=== PATIENT | female | born 1985 | race Caucasian/White ===

== ENCOUNTER 2016-07-17 09:16 | Emergency (ER) | payer SELFPAY ==
[~2016-07-17] VITALS: Ht 170.2 cm; Wt 63.8 kg
[2016-07-17 09:18] VITALS: Ht 170.2 cm; Wt 63.8 kg
--- OUTSIDE RECORDS SUMMARY | 2016-07-17 09:20 | XMS REPORT ---
Author Author GENERATED, SYSTEM Organization Unknown Address Unknown Phone Unavailable Care Team Providers Care Assistant Operations Manager Name Role Phone MD DIEGO, [facility] [phone] Reason For Visit Chief Complaint PHARYNGITIS Social History Functional Status Vital Signs Results Problems Encounter Diagnosis No relevant problems exist. Encounters Encounter Diagnosis No relevant problems exist. Plan of Care Procedures No relevant procedures performed. Immunizations No immunizations administered or ordered. Hospital Course Hospital Discharge Instructions Allergies, Adverse Reactions, Alerts * Latex Allergy has not been assessed. * IV Contrast Allergy has not been assessed. Medication Medication reconciliation has not been performed.
--- OUTSIDE RECORDS SUMMARY | 2016-07-17 09:20 | XMS REPORT ---
Author Author GENERATED, SYSTEM Organization Unknown Address Unknown Phone Unavailable Care Team Providers Care Local Company Intermodal Truck Driver Name Role Phone MD DIEGO, PAO PP [phone] Reason For Visit Chief Complaint PID Social History Functional Status Vital Signs Results Chemistry from 01/14/2016 12:36 PMSODIUM 141 MMOL/L (136-145 MMOL/L) POTASSIUM 3.9 MMOL/L (3.5-5.1 MMOL/L) CHLORIDE 106 MMOL/L (98-107 MMOL/L) TCO2 24.8 MMOL/L (21.0-32.0 MMOL/L) *ANION GAP 10.2 MMOL/L (8.0-16.0 MMOL/L) BUN 14 MG/DL (7-18 MG/DL) CREATININE 0.97 MG/DL (0.55-1.02 MG/DL) *BUN/CREATININE RATIO 14.4 (9.1-17.0 ) GLUCOSE 100 MG/DL H (65-99 MG/DL) *GFR EST NON AFR [place] 79 ML/MIN *GFR EST AFR AMER >90 ML/MIN CALCIUM 9.3 MG/DL (8.5-10.1 MG/DL) BILIRUBIN TOTAL 0.60 MG/DL (0.20-1.00 MG/DL) TOTAL PROTEIN 8.0 GM/DL (6.4-8.2 GM/DL) ALBUMIN 4.5 GM/DL (3.4-5.0 GM/DL) *GLOBULIN 3.5 GM/DL (2.3-3.5 GM/DL) *A/G RATIO 1.3 MG/DL L (1.5-2.2 MG/DL) ALK PHOS 54 U/L (46-116 U/L) ALT (SGPT) 13 U/L L (16-63 U/L) AST (SGOT) 12 U/L L (15-37 U/L) AMYLASE 43 U/L (25-115 U/L) LIPASE 94 U/L (73-393 U/L) TEST NEGATIVE (NEGATIVE ) Hematology from 01/14/2016 12:36 PMWBC 10.4 X10e3/UL (3.6-11.2 X10e3/UL) RBC 4.96 X10e6/UL H (3.63-4.92 X10e6/UL) HEMOGLOBIN 15.4 G/DL H (11.0-14.3 G/DL) HEMATOCRIT 45.6 % H (31.2-41.9 %) *MCV 92.1 FL (79.0-98.0 FL) *MCH 31.0 PG (27.0-33.0 PG) *MCHC 33.7 G/DL (32.0-36.0 G/DL) *RDW 13.1 % (12.3-17.0 %) *RDWSD 42.0 (37.1-47.8 ) PLATELET 143 X10e3/UL L (159-386 X10e3/UL) *MPV 10.7 FL H (7.4-10.4 FL) AUTOMATED DIFF PERFORMED SEGS 72.0 % *LYMPHOCYTES 19.1 % *MONOCYTES 8.0 % *EOSINOPHILS 0.4 % *BASOPHILS 0.5 % *ABSOLUTE NEUTROPHILS 7.50 X10e3/UL (1.80-7.80 X10e3/UL) *ABSOLUTE LYMPHOCYTES 2.00 X10e3/UL (1.00-3.00 X10e3/UL) *ABSOLUTE MONOCYTES 0.80 X10e3/UL (0.30-1.00 X10e3/UL) *ABSOLUTE EOSINOPHILS 0.00 X10e3/UL (0.00-0.50 X10e3/UL) *ABSOLUTE BASOPHILS 0.10 X10e3/UL (0.00-0.20 X10e3/UL) *PLATELET SLIDE REVIEW ADEQUATE (ADEQUATE ) Urinalysis from 01/14/2016 12:25 PM*URINE COLOR STRAW (STRAW/YELL/DK YELL ) *URINE APPEARANCE CLEAR (CLEAR ) URINE PH 7.0 (5.0-8.0 ) URINE SPECIFIC GRAVITY 1.015 (<=1.005->=1.030 ) *URINE GLUCOSE NEGATIVE MG/DL (NEGATIVE MG/DL) *URINE BILIRUBIN NEGATIVE (NEGATIVE ) *URINE KETONES NEGATIVE MG/DL (NEGATIVE MG/DL) *URINE BLOOD NEGATIVE (NEGATIVE ) *URINE PROTEIN NEGATIVE MG/DL (NEGATIVE MG/DL) *URINE UROBILINOGEN 0.2 EU/DL (0.2-1.0 EU/DL) *URINE NITRITES NEGATIVE (NEGATIVE ) *URINE LEUKOCYTES NEGATIVE (NEGATIVE ) Coagulation from 01/14/2016 12:36 PM*PROTHROMBIN TIME 10.1 SECONDS (9.4-11.5 SECONDS) *INR 1.0 (0.9-1.1 ) PARTIAL THROMBOPLASTIN TIME 26.0 SECONDS (23.0-31.0 SECONDS) Microbiology from 01/14/2016 2:25 PM* *EDWINA- FUNGAL SMEAR Specimen Number: [id number] Sample Collection Date/Time: 01/14/2016 2:25 PM Specimen Source: Cervix /vaginal *WET PREP: No Trichomonas seen *EDWINA- FUNGAL SMEAR: No yeast or fungal elements seen CULTURE GC PROFILE: No Neisseria gonorrhoeae isolated * *WET PREP Specimen Number: [id number] Sample Collection Date/Time: 01/14/2016 2:25 PM Specimen Source: Cervix /vaginal *WET PREP: No Trichomonas seen *EDWINA- FUNGAL SMEAR: No yeast or fungal elements seen CULTURE GC PROFILE: No Neisseria gonorrhoeae isolated * CULTURE GC PROFILE (Preliminary Result) Specimen Number: [id number] Sample Collection Date/Time: 01/14/2016 2:25 PM Specimen Source: Cervix /vaginal *WET PREP: No Trichomonas seen CULTURE GC PROFILE: No Neisseria gonorrhoeae isolated *EDWINA- FUNGAL SMEAR: No yeast or fungal elements seen CT Scan from 01/14/2016 1:36 PMCT ABD/PELVIS W/CONTRAST History: Normal - severe RLQ pain . Technique: Post contrast images were performed after the administration of 95 milliliters of Isovue intravenous contrast. Priors: CT of abdomen pelvis dated 11/14/2014 Findings: Abdomen Lung bases: Clear Liver: Normal density. No definable mass. Spleen: Normal. Pancreas: No discrete mass or inflammatory process. Gallbladder and biliary tract: There is a calcified stone and hxdw-tf-eeraulbg sludge within the gallbladder without significant gallbladder distention. Adrenal glands: Normal. Kidneys: Normal enhancement. No masses. No radiodense stones or hydronephrosis. Urinary Bladder: Normal. Aorta: Normal in caliber. No periaortic lymphadenopathy. Bowel and Mesentery: There is moderate to marked retained fecal material throughout the colon, greatest involving the cecum and ascending colon. The appendix is within normal limits. Ascites: None. Pelvis Lymphadenopathy: None. Reproductive: Unremarkable. Osseous Structures: No suspicious findings. Impression: Moderate to severe constipation. No evidence of acute abdominopelvic inflammatory process. Cholelithiasis and gallbladder sludge. Electronically signed by: Becki Minor MD Dictated: 01/14/2016 13:47 Problems Encounter Diagnosis No relevant problems exist. [...]
--- OUTSIDE RECORDS SUMMARY | 2016-07-17 09:20 | XMS REPORT ---
Author Author GENERATED, SYSTEM Organization Unknown Address Unknown Phone Unavailable Care Team Providers Care Inspector Structural Bonding Name Role Phone MD DIEGO, [facility] PP [phone] Reason For Visit Chief Complaint No relevant chief complaints exist. Social History Functional Status Vital Signs Results [...]
--- OUTSIDE RECORDS SUMMARY | 2016-07-17 09:20 | XMS REPORT ---
Author Author GENERATED, SYSTEM Organization Unknown Address Unknown Phone Unavailable Care Team Providers Care Lathe Set Up Operator Name Role Phone MD DIEGO, [facility] PP [phone] Reason For Visit Chief Complaint R01.1, R19.7, R10.9 Social History Functional Status Vital Signs Results [...]
--- OUTSIDE RECORDS SUMMARY | 2016-07-17 09:21 | XMS REPORT ---
Author Author GENERATED, SYSTEM Organization Unknown Address Unknown Phone Unavailable Care Team Providers Care Student Liaison Officer Name Role Phone MD DIEGO, PAO PP [phone] Reason For Visit Chief Complaint ABD PAIN Social History Functional Status Vital Signs Results Chemistry from 04/22/2016 9:10 PMSODIUM 139 MMOL/L (136-145 MMOL/L) POTASSIUM 3.8 MMOL/L (3.5-5.1 MMOL/L) CHLORIDE 104 MMOL/L (98-107 MMOL/L) TCO2 24.9 MMOL/L (21.0-32.0 MMOL/L) *ANION GAP 10.1 MMOL/L (8.0-16.0 MMOL/L) BUN 25 MG/DL H (7-18 MG/DL) CREATININE 0.80 MG/DL (0.55-1.02 MG/DL) *BUN/CREATININE RATIO 31.3 H (9.1-17.0 ) GLUCOSE 92 MG/DL (65-99 MG/DL) *GFR EST NON AFR [facility] [place] >90 ML/MIN *GFR EST AFR AMER >90 ML/MIN CALCIUM 9.0 MG/DL (8.5-10.1 MG/DL) BILIRUBIN TOTAL 0.40 MG/DL (0.20-1.00 MG/DL) TOTAL PROTEIN 7.8 GM/DL (6.4-8.2 GM/DL) ALBUMIN 4.4 GM/DL (3.4-5.0 GM/DL) *GLOBULIN 3.4 GM/DL (2.3-3.5 GM/DL) *A/G RATIO 1.3 MG/DL L (1.5-2.2 MG/DL) ALK PHOS 57 U/L (46-116 U/L) ALT (SGPT) 14 U/L L (16-63 U/L) AST (SGOT) 9 U/L L (15-37 U/L) AMYLASE 45 U/L (25-115 U/L) LIPASE 130 U/L (73-393 U/L) TEST NEGATIVE (NEGATIVE ) Hematology from 04/22/2016 9:10 PMWBC 12.7 X10e3/UL H (3.6-11.2 X10e3/UL) RBC 4.65 X10e6/UL (3.63-4.92 X10e6/UL) HEMOGLOBIN 14.2 G/DL (11.0-14.3 G/DL) HEMATOCRIT 42.8 % H (31.2-41.9 %) *MCV 92.2 FL (79.0-98.0 FL) *MCH 30.5 PG (27.0-33.0 PG) *MCHC 33.1 G/DL (32.0-36.0 G/DL) *RDW 12.8 % (12.3-17.0 %) *RDWSD 41.6 (37.1-47.8 ) PLATELET 158 X10e3/UL L (159-386 X10e3/UL) *MPV 10.8 FL H (7.4-10.4 FL) AUTOMATED DIFF PERFORMED SEGS 62.5 % *LYMPHOCYTES 29.0 % *MONOCYTES 7.1 % *EOSINOPHILS 0.8 % *BASOPHILS 0.6 % *ABSOLUTE NEUTROPHILS 8.00 X10e3/UL H (1.80-7.80 X10e3/UL) *ABSOLUTE LYMPHOCYTES 3.70 X10e3/UL H (1.00-3.00 X10e3/UL) *ABSOLUTE MONOCYTES 0.90 X10e3/UL (0.30-1.00 X10e3/UL) *ABSOLUTE EOSINOPHILS 0.10 X10e3/UL (0.00-0.50 X10e3/UL) *ABSOLUTE BASOPHILS 0.10 X10e3/UL (0.00-0.20 X10e3/UL) Urinalysis from 04/22/2016 9:10 PM*URINE COLOR YELLOW (STRAW/YELL/DK YELL ) *URINE APPEARANCE CLEAR (CLEAR ) URINE PH 6.0 (5.0-8.0 ) URINE SPECIFIC GRAVITY 1.025 (<=1.005->=1.030 ) *URINE GLUCOSE NEGATIVE MG/DL (NEGATIVE MG/DL) *URINE BILIRUBIN NEGATIVE (NEGATIVE ) *URINE KETONES NEGATIVE MG/DL (NEGATIVE MG/DL) *URINE BLOOD NEGATIVE (NEGATIVE ) *URINE PROTEIN NEGATIVE MG/DL (NEGATIVE MG/DL) *URINE UROBILINOGEN 0.2 EU/DL (0.2-1.0 EU/DL) *URINE NITRITES NEGATIVE (NEGATIVE ) *URINE LEUKOCYTES NEGATIVE (NEGATIVE ) Coagulation from 04/22/2016 9:10 PM*PROTHROMBIN TIME 10.0 SECONDS (9.4-11.5 SECONDS) *INR 1.0 (0.9-1.1 ) PARTIAL THROMBOPLASTIN TIME 26.8 SECONDS (23.0-31.0 SECONDS) CT Scan from 04/22/2016 9:50 PMCT ABDOMEN (CTA ABDOMEN) History: Right upper quadrant pain and suprapubic tenderness. Nausea vomiting and diarrhea. Technique: Study was performed with 95 mL of Isovue 3 and IV contrast. Two-dimensional and three-dimensional reconstructions were performed through abdominal aorta and mesenteric vasculature. Priors: 01/14/2016 Findings: There is mild retained fecal material in the colon consistent mild constipation. There is a simple appearing left ovarian cyst measuring 2.8 x 1.5 cm. There are gallstones and sludge dependently within the gallbladder. The aorta and iliac vessels appear widely patent with no evidence of stenosis, aneurysm or dissection. There is mild narrowing celiac axis at its origin secondary to mild kinking at origin. This measures approximate 50 percent. The superior mesenteric artery and inferior mesenteric arteries appear widely patent. There is single bilateral renal arteries show which appear widely patent. 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 This may be due to extrinsic compression by an overlying ligament or retroperitoneal structure and is likely of no clinical significance. The remaining mesenteric vasculature appears normal limits. Mild constipation in the proximal colon. Cholelithiasis and gallbladder sludge. Simple appearing left ovarian cyst. . Electronically signed by: Perico Eli MD Dictated: 04/23/2016 09:13 Problems Encounter Diagnosis No relevant problems exist. [...]
--- OUTSIDE RECORDS SUMMARY | 2016-07-17 09:21 | XMS REPORT ---
Author Author GENERATED, SYSTEM Organization Unknown Address Unknown Phone Unavailable Care Team Providers Care Floor Finisher Name Role Phone [facility] PP Unavailable Reason For Visit Chief Complaint 5 TO 6 WKS PREG BLEEDING CRAMPING Social History Functional Status Vital Signs Results Chemistry from 11/05/2013 2:16 AMHCG QUANT 267 MIU/ML H (0-6 MIU/ML) Urinalysis from 11/05/2013 1:00 AMURINE COLOR STRAW (STRAW/YELL/DK YELL ) URINE APPEARANCE CLEAR (CLEAR ) URINE PH 6.0 (5.0-8.0 ) URINE SPECIFIC GRAVITY 1.010 (<=1.005->=1.030 ) URINE GLUCOSE NEGATIVE MG/DL (NEGATIVE MG/DL) URINE BILIRUBIN NEGATIVE (NEGATIVE ) URINE KETONES NEGATIVE MG/DL (NEGATIVE MG/DL) URINE BLOOD NEGATIVE (NEGATIVE ) URINE PROTEIN NEGATIVE MG/DL (NEGATIVE MG/DL) URINE UROBILINOGEN 0.2 EU/DL (0.2-1.0 EU/DL) URINE NITRITES NEGATIVE (NEGATIVE ) *URINE LEUKOCYTES NEGATIVE (NEGATIVE ) UR POSITIVE A (NEGATIVE ) Blood Bank from 11/05/2013 2:16 [facility] TYPE POS Problems Encounter Diagnosis No relevant problems exist. [...]
--- OUTSIDE RECORDS SUMMARY | 2016-07-17 09:21 | XMS REPORT | Continuity of Care Document ---
Author Author [facility] Organization [facility] Address Unknown Phone Unavailable Allergies Medications Problems Date Dx Coded Attending Type Code Diagnosis Diagnosed By 11/15/2014 KOJO OSHEA 6235 NONINFECT VAG LEUKORRHEA 11/15/2014 KOJO OSHEA 78702 ABDOMINAL PAIN, UNSPECIF 11/15/2014 KOJO OSHEA [id number] ABDOMINAL PAIN RT LW ROSS 11/15/2014 KOJO OSHEA 42212 NONSP FIND-STRUCT NEC Procedures Results Test Result Range URINALYSIS (CULTURE PRN) - 04/22/16 21:10 *URINE APPEARANCE CLEAR CLEAR *URINE BILIRUBIN NEGATIVE NEGATIVE *URINE BLOOD NEGATIVE NEGATIVE *URINE GLUCOSE NEGATIVE NEGATIVE *URINE KETONES NEGATIVE NEGATIVE *URINE LEUKOCYTES NEGATIVE NEGATIVE *URINE NITRITES NEGATIVE NEGATIVE URINE PH 6.0 5.0-8.0 *URINE PROTEIN NEGATIVE NEGATIVE URINE SPECIFIC GRAVITY 1.025 <=1.005->= 1.030 *URINE UROBILINOGEN 0.2 0.2-1.0 *URINE COLOR YELLOW STRAW/YELL/DK YELL PROTHROMBIN TIME - 04/22/16 21:10 *INR 1.0 0.9-1.1 *PROTHROMBIN TIME 10.0 s 9.4-11.5 PARTIAL THROMBOPLASTIN TIME - 04/22/16 21:10 PARTIAL THROMBOPLASTIN TIME 26.8 s 23.0- 31.0 TEST - 04/22/16 21:10 TEST NEGATIVE NEGATIVE COMPREHENSIVE METABOLIC PANEL - 04/22/16 21:10 BILIFUBIN TOTAL 0.40 0.20-1.00 TOTAL PROTEIN 7.8 6.4-8.2 ALBUMIN 4.4 3.4-5.0 *GLOBULIN 3.4 2.3-3.5 *A/G RATIO 1.3 1.5-2.2 ALK PHOS 57 U/L 46-116 ALT (SGPT) 14 U/L 16-63 AST (SGOT) 9 U/L 15-37 GFR ESTIMATION - 04/22/16 21:10 *GFR EST NON AFR [place] >90 mL/min NRG *GRFA EST AFR AMER >90 mL/min NRG LIPASE - 04/22/16 21:10 LIPASE 130 U/L 73-393 AMYLASE - 04/22/16 21:10 AMYLASE 45 U/L 25-115 Encounters ACCT No. Visit Date/Time Discharge Status Pt. Type Provider Facility Loc./Unit Complaint [id number] 04/22/2016 17:22:00 2016 20:34:32 [facility] Emergency [facility] [id number] 01/14/2016 11:30:00 2015 04:39:32 DIS Emergency KOJO OSHEA PID [id number] 11/14/2014 17:55:00 2014 01:52:04 DIS Emergency KOJO OSHEA [id number] 07/19/2015 16:28:00 ACT Outpatient DARCIE JARAMILLO [id number] 07/19/2015 16:25:00 ACT Outpatient PAO CORTEZ A
--- OUTSIDE RECORDS SUMMARY | 2016-07-17 09:21 | XMS REPORT ---
Author Author GENERATED, SYSTEM Organization Unknown Address Unknown Phone Unavailable Care Team Providers Care Lna Name Role Phone [facility] PP Unavailable Reason For Visit Chief Complaint ABDOMINAL PAIN RT LW ROSS,RT LOWER ABD PAIN RT LEG,ABDOMINAL PAIN, UNSPECIF, NONSP FIND-STRUCT NEC,NONINFECT VAG LEUKORRHEA Social History Functional Status Vital Signs Results Chemistry from 11/14/2014 7:55 PMSODIUM 141 MMOL/L (136-145 MMOL/L) POTASSIUM 3.5 MMOL/L (3.5-5.1 MMOL/L) CHLORIDE 106 MMOL/L (98-107 MMOL/L) TCO2 26.6 MMOL/L (21.0-32.0 MMOL/L) ANION GAP 8.4 MMOL/L (8.0-16.0 MMOL/L) BUN 14 MG/DL (7-18 MG/DL) CREATININE 0.77 MG/DL (0.43-0.83 MG/DL) BUN/CREATININE RATIO 18.2 H (9.1-17.0 ) GLUCOSE 89 MG/DL (65-99 MG/DL) GFR EST NON AFR LAO >90 ML/MIN GFRA EST AFR AMER >90 ML/MIN CALCIUM 8.9 MG/DL (8.5-10.1 MG/DL) BILIRUBIN TOTAL 0.16 MG/DL L (0.20-1.00 MG/DL) TOTAL PROTEIN 7.0 GM/DL (6.4-8.2 GM/DL) ALBUMIN 3.9 GM/DL (3.4-5.0 GM/DL) GLOBULIN 3.1 GM/DL (2.3-3.5 GM/DL) A/G RATIO 1.3 MG/DL L (1.5-2.2 MG/DL) ALK PHOS 50 U/L (46-116 U/L) ALT (SGPT) 14 U/L L (16-63 U/L) AST (SGOT) 10 U/L L (15-37 U/L) TEST NEGATIVE (NEGATIVE ) Hematology from 11/14/2014 7:55 PMWBC 8.8 X10e3/UL (3.6-11.2 X10e3/UL) RBC 4.17 X10e6/UL (3.63-4.92 X10e6/UL) HEMOGLOBIN 13.1 G/DL (11.0-14.3 G/DL) HEMATOCRIT 38.3 % (31.2-41.9 %) MCV 91.9 FL (79.0-98.0 FL) MCH 31.3 PG (27.0-33.0 PG) MCHC 34.1 G/DL (32.0-36.0 G/DL) RDW 12.6 % (12.3-17.0 %) RDWSD 39.8 (37.1-47.8 ) PLATELET 147 X10e3/UL L (159-386 X10e3/UL) MPV 10.8 FL H (7.4-10.4 FL) AUTOMATED DIFF PERFORMED SEGS 63.9 % LYMPHOCYTES 27.0 % MONOCYTES 7.8 % EOSINOPHILS 0.7 % BASOPHILS 0.6 % ABSOLUTE NEUTROPHILS 5.60 X10e3/UL (1.80-7.80 X10e3/UL) ABSOLUTE LYMPHOCYTES 2.40 X10e3/UL (1.00-3.00 X10e3/UL) ABSOLUTE MONOCYTES 0.70 X10e3/UL (0.30-1.00 X10e3/UL) ABSOLUTE EOSINOPHILS 0.10 X10e3/UL (0.00-0.50 X10e3/UL) ABSOLUTE BASOPHILS 0.10 X10e3/UL (0.00-0.20 X10e3/UL) Urinalysis from 11/14/2014 7:22 PM* Status: Final Result URINALYSIS Specimen Number: [id number] Sample Collection Date/Time: 11/14/2014 7:22 PM Specimen Source: URINE COLOR YELLOW (STRAW/YELL/DK YELL ) URINE APPEARANCE CLEAR (CLEAR ) URINE PH 6.0 (5.0-8.0 ) URINE SPECIFIC GRAVITY 1.020 (<=1.005->=1.030 ) URINE GLUCOSE NEGATIVE MG/DL (NEGATIVE MG/DL) URINE BILIRUBIN NEGATIVE (NEGATIVE ) URINE KETONES NEGATIVE MG/DL (NEGATIVE MG/DL) URINE BLOOD NEGATIVE (NEGATIVE ) URINE PROTEIN NEGATIVE MG/DL (NEGATIVE MG/DL) URINE UROBILINOGEN 0.2 EU/DL (0.2-1.0 EU/DL) URINE NITRITES NEGATIVE (NEGATIVE ) *URINE LEUKOCYTES TRACE A (NEGATIVE ) MICROSCOPIC EXAM PERFORMED PERFORMED WBC 1-5 /HPF (0-5 /HPF) RBC 1-5 /HPF A (0-1 /HPF) SQUAMOUS EP. CELLS MANY /LPF A (NEG-FEW /LPF) BACTERIA MODERATE /HPF A (NEGATIVE /HPF) Microbiology from 11/14/2014 7:57 PM* *EDWINA- FUNGAL SMEAR Specimen Number: [id number] Sample Collection Date/Time: 11/14/2014 7:57 PM Specimen Source: Cervix /Vaginal *WET PREP: No Trichomonas seen *EDWINA- FUNGAL SMEAR: No yeast or fungal elements seen CULTURE GC PROFILE: No Neisseria gonorrhoeae isolated * *WET PREP Specimen Number: [id number] Sample Collection Date/Time: 11/14/2014 7:57 PM Specimen Source: Cervix /Vaginal *WET PREP: No Trichomonas seen *EDWINA- FUNGAL SMEAR: No yeast or fungal elements seen CULTURE GC PROFILE: No Neisseria gonorrhoeae isolated * CULTURE GC PROFILE (Preliminary Result) Specimen Number: [id number] Sample Collection Date/Time: 11/14/2014 7:57 PM Specimen Source: Cervix /Vaginal *WET PREP: No Trichomonas seen CULTURE GC PROFILE: No Neisseria gonorrhoeae isolated *EDWINA- FUNGAL SMEAR: No yeast or fungal elements seen Problems Encounter Diagnosis No relevant problems exist. [...]
--- OUTSIDE RECORDS SUMMARY | 2016-07-17 09:21 | XMS REPORT ---
Author Author GENERATED, SYSTEM Organization Unknown Address Unknown Phone Unavailable Care Team Providers Care Reactor Fueling Supervisor Name Role Phone [facility] PP Unavailable Reason For Visit Chief Complaint [...] (NEGATIVE ) Blood Bank from 11/05/2013 2:16 [facility] TYPE POS Problems Encounter Diagnosis No relevant [...]
--- NOTE | 2016-07-17 09:30 | NUR ---
PROVIDER DR. KENDRICK AT BEDSIDE FOR EXAM AND HEMOCCULT TEST ACCOMP BY THIS RN.
--- OUTSIDE RECORDS SUMMARY | 2016-07-17 09:32 | XMS REPORT | Continuity of Care Document ---
Author Author [facility] Organization [facility] Address Unknown Phone Unavailable Allergies Medications Problems Date Dx Coded Attending Type Code Diagnosis Diagnosed By 11/15/2014 KOJO OSHEA 6235 NONINFECT VAG LEUKORRHEA 11/15/2014 KOJO OSHEA 74211 ABDOMINAL PAIN, UNSPECIF 11/15/2014 KOJO OSHEA 02338 ABDOMINAL PAIN RT LW ROSS 11/15/2014 KOJO OSHEA 63780 NONSP FIND-STRUCT NEC Procedures Results Test Result [...] - 04/22/16 21:10 *GFR EST NON AFR [place] >90 mL/min NRG *GRFA EST AFR AMER >90 mL/min NRG LIPASE - 04/22/16 21:10 LIPASE 130 U/L 73-393 AMYLASE - 04/22/16 21:10 AMYLASE 45 U/L 25-115 Encounters ACCT No. Visit Date/Time Discharge Status Pt. Type Provider Facility Loc./Unit Complaint [id number] 04/22/2016 17:22:00 2016 20:34:32 DIS Emergency [facility] [id number] 01/14/2016 11:30:00 2015 04:39:32 DIS Emergency KOJO OSHEA PID [id number] 11/14/2014 17:55:00 2014 01:52:04 DIS Emergency KOJO OSHEA [id number] 07/19/2015 16:28:00 ACT Outpatient DARCIE JARAMILLO [id number] 07/19/2015 16:25:00 ACT Outpatient PAO CORTEZ A
--- OUTSIDE RECORDS SUMMARY | 2016-07-17 09:32 | XMS REPORT ---
Author Author GENERATED, SYSTEM Organization Unknown Address Unknown Phone Unavailable Care Team Providers Care Photographic Specialist Name Role Phone [facility] PP Unavailable Reason For Visit Chief Complaint [...] (NEGATIVE ) Blood Bank from 11/05/2013 2:16 [facility] TYPE POS Problems Encounter Diagnosis No relevant [...]
--- OUTSIDE RECORDS SUMMARY | 2016-07-17 09:32 | XMS REPORT ---
Author Author GENERATED, SYSTEM Organization Unknown Address Unknown Phone Unavailable Care Team Providers Care Energy Broker Name Role Phone MD DIEGO, PAO PP [phone] Reason For Visit Chief Complaint ABD PAIN [...] MG/DL (65-99 MG/DL) *GFR EST NON AFR [place] >90 ML/MIN *GFR EST AFR AMER >90 [...]
--- OUTSIDE RECORDS SUMMARY | 2016-07-17 09:32 | XMS REPORT ---
Author Author GENERATED, SYSTEM Organization Unknown Address Unknown Phone Unavailable Care Team Providers Care Chemical Engineering Technologist Name Role Phone [facility] [...]
--- OUTSIDE RECORDS SUMMARY | 2016-07-17 09:32 | XMS REPORT ---
Author Author GENERATED, SYSTEM Organization Unknown Address Unknown Phone Unavailable Care Team Providers Care Ambulatory Analyst Name Role Phone [facility] PP Unavailable Reason For Visit Chief [...] MG/DL (65-99 MG/DL) GFR EST NON AFR ERITREAN >90 ML/MIN GFRA EST AFR AMER >90 [...] PM* Status: Final Result URINALYSIS Specimen Number: [id number] Sample Collection Date/Time: 11/14/2014 7:22 PM Specimen [...] 7:57 PM* *EDWINA- FUNGAL SMEAR Specimen Number: [id number] Sample Collection Date/Time: 11/14/2014 7:57 PM Specimen Source: Cervix /Vaginal *WET PREP: No Trichomonas seen *EDWINA- FUNGAL SMEAR: No yeast or fungal elements seen CULTURE GC PROFILE: No Neisseria gonorrhoeae isolated * *WET PREP Specimen Number: [id number] Sample Collection Date/Time: 11/14/2014 7:57 PM Specimen Source: Cervix /Vaginal *WET PREP: No Trichomonas seen *EDWINA- FUNGAL SMEAR: No yeast or fungal elements seen CULTURE GC PROFILE: No Neisseria gonorrhoeae isolated * CULTURE GC PROFILE (Preliminary Result) Specimen Number: [id number] Sample Collection Date/Time: 11/14/2014 7:57 PM Specimen [...]
--- OUTSIDE RECORDS SUMMARY | 2016-07-17 09:32 | XMS REPORT ---
Author Author GENERATED, SYSTEM Organization Unknown Address Unknown Phone Unavailable Care Team Providers Care Steamship Agent Name Role Phone MD DIEGO, [facility] PP [phone] Reason For Visit Chief Complaint PID Social [...] H (65-99 MG/DL) *GFR EST NON AFR IRISH 79 ML/MIN *GFR EST AFR AMER >90 [...] 2:25 PM* *EDWINA- FUNGAL SMEAR Specimen Number: [id number] Sample Collection Date/Time: 01/14/2016 2:25 PM Specimen Source: Cervix /vaginal *WET PREP: No Trichomonas seen *EDWINA- FUNGAL SMEAR: No yeast or fungal elements seen CULTURE GC PROFILE: No Neisseria gonorrhoeae isolated * *WET PREP Specimen Number: [id number] Sample Collection Date/Time: 01/14/2016 2:25 PM Specimen Source: Cervix /vaginal *WET PREP: No Trichomonas seen *EDWINA- FUNGAL SMEAR: No yeast or fungal elements seen CULTURE GC PROFILE: No Neisseria gonorrhoeae isolated * CULTURE GC PROFILE (Preliminary Result) Specimen Number: [id number] Sample Collection Date/Time: 01/14/2016 2:25 PM Specimen [...] tract: There is a calcified stone and [id number] sludge within the gallbladder without significant gallbladder [...]
--- OUTSIDE RECORDS SUMMARY | 2016-07-17 09:32 | XMS REPORT ---
Author Author GENERATED, SYSTEM Organization Unknown Address Unknown Phone Unavailable Care Team Providers Care Cq Developer Name Role Phone MD DIEGO, [facility] [phone] Reason For Visit Chief Complaint PHARYNGITIS Social [...]
--- OUTSIDE RECORDS SUMMARY | 2016-07-17 09:32 | XMS REPORT ---
Author Author GENERATED, SYSTEM Organization Unknown Address Unknown Phone Unavailable Care Team Providers Care Atmospheric Technician Name Role Phone MD DIEGO, [facility] PP [phone] Reason For Visit Chief Complaint R01.1, R19.7, [...]
[2016-07-17] MEDS ORDERED: no routine meds (09:38)
--- NOTE | 2016-07-17 09:49 | ERPDOC ---
Departure Disposition Decision Date: Jul 17, 2016 Disposition Decision Time: 12:14 Disposition: 01 DISCHARGED HOME, SELF-CARE Impression Impression Impression: Primary Impression: Abdominal pain Abdominal location: lower abdomen, unspecified Qualified Codes: R10.30 - Lower abdominal pain, unspecified Severity: Mild Condition: Improved Seen By: Physician only Referrals: [facility] 2 Days Patient Instructions: Abdominal Pain (ED) Problems/Meds/Labs Reviewed?: Yes Medications reviewed and manag: Yes Follow up care ordered?: Yes Mental Status: Alert, Oriented Scripts Hydrocodone/Acetaminophen (Heppner 5-325 Tablet) 5-325 Tablet 1 TAB PO Q4HR Y for PAIN for 2 Days, #12 TAB 0 Refills Prov: AURY KENDRICK DO 07/17/16 Ondansetron (Zofran Odt) 4 Mg Tab.rapdis 4 MG PO Q4HR Y for NAUSEA &/OR VOMITING for 3 Days, #18 TAB 0 Refills Prov: AURY KENDRICK DO 07/17/16 Metronidazole (Flagyl) 500 Mg Tablet 500 MG PO Q12HR for 7 Days, #14 TAB 0 Refills Take 1 tablet, by mouth, every 12 hours. Prov: AURY KENDRICK DO 07/17/16 HPI - Abdominal Pain General Chief Complaint: Abdominal Pain Stated Complaint: RECTAL BLEEDING Time Seen by Provider: 09:18 Source: patient History/Exam Limitations: no limitations HPI - Abdominal Pain Initial Comments 30-year-old female presents to the emergency department with a chief complaint of an exacerbation of her chronic abdominal pain. Patient has had this abdominal discomfort for the past 2 years. She has undergone GI Evaluation with Dr. Adrian with a negative workup other than hemorrhoids. Patient and her last colonoscopy 1 year ago which was negative. Patient notes a generalized abdominal discomfort. Pain is sharp. There is no radiation. She does not note anything that makes his symptoms any better or any worse. Symptoms are moderate in nature. Patient also states that today she noted what she believed to be blood on the toliet tissue in the bathroom. No other complaints or associated symptoms. Patient is not anticoagulated. She was at home when the symptoms began. Symptoms have been persistent in nature since onset. This is a typical exacerbation of the patient's chronic abdominal pain. She denies any pelvic or vaginal symptoms. Occurred At: home Onset: Constant, other (Chronic) Allergies: Coded Allergies: No Known Allergies (Unverified , 07/17/16) Past History Past Medical History Pt denies signifigant PMH Surgical History Denies Surgeries Family History Family History: Negative Social History Smoking Status: Never smoker Substance Use Type: does not use Alcohol Intake: none Review of Systems Constitutional Constitutional: DENIES: chills, dizziness, fever Eyes General: DENIES: erythema, exudate Lids/Accessories: DENIES: erythema, swelling Vision: DENIES: acuity, blurring ENMT Ears: DENIES: drainage, pain Hearing: DENIES: hearing loss Balance: DENIES: ataxia, falling to one side Sinuses: DENIES: congestion, pain Nose: DENIES: nosebleeds, pain Mouth/Throat: DENIES: painful swallowing, sore throat Teeth: DENIES: pain Jaw: DENIES: pain Cardiovascular Cardiac: DENIES: chest pain, dyspnea on exertion Rhythm/Rate: DENIES: irregular beat, palpitations Vascular: DENIES: pedal edema, unilateral swelling Pulmonary Respiratory: DENIES: cough, dyspnea, pleuritic chest pain, sputum GI Upper Abdomen: DENIES: nausea, pain, vomiting Lower Abdomen: pain, DENIES: diarrhea General: DENIES: dysuria, pain Musculoskeletal General: DENIES: joint pain, pain, tenderness Integumentary Skin: DENIES: itching, rash Neurological General: DENIES: headache, numbness, weakness Psychiatric Psychiatric: DENIES: emotional instability, suicidal ideation/attempt Endocrine Endocrine: DENIES: polydipsia, polyphagia Hematologic/Lymphatic Hematologic/Lymphatic: DENIES: frequent nosebleeds, lymphadenopathy Allergic/Immunological Allergic/Immunoligical: DENIES: allergic reactions, hives Physical Exam General General Nourishment: well nourished, well developed, appears stated age, no acute distress, adult General Body Habitus: well groomed Vitals and Pain First Documented Vital Signs Date Time Temp Pulse Resp B/P Pulse Ox O2 Delivery O2 Flow Rate FiO2 07/17/16 09:18 98.5 83 16 130/59 100 Room Air Weight: Kilograms: Height (feet): Height (inches): Triage Pain Scale: RN VS reviewed by Provider: Yes Normal Exams: Head: Normocephalic w/o trauma Eyes: Pupils are PERRLA w/ EOMI, No scleral icterus, irritation, or foreign bodies noted ENMT: No facial trauma, nasal exudates, pharyngeal erythema, or exudates are noted Dental: No fractured, loose, or missing teeth noted Neck: Full range of motion, without adenopathy, JVD, bruits or thyromegaly Chest/Resp: Clear all parkinson, with good airflow, and symmetry bilaterally CV: Regular rate and rhythm, without murmur or gallop, Pulses 2+ all extremities, capillary refill, <2 seconds all ext., no pedal edema noted Abdomen: Bowel sounds positive, non-distended, no hepatosplenomegaly, masses or bruits noted Lymphatic: No lymphadenopathy, or lymphedema noted Musculoskeletal: No tenderness, or deformity noted, good range of motion, all extremities Integumentary: No rashes, hives, or bruising noted, hair and nails, without abnormality Neurologic: Patient is alert, and oriented, cranial nerves, motor/sensory/ cerebellar, exams w/o gross deficits, to observation Psychiatric: Patient exhibits, appropriate attention, emotion and affect Abdomen (brief) Comments Soft. Mild tender to palpation generalized lower abdomen. No peritoneal signs. No rebound or guarding. No CVAT. Bowel sounds are active. No distention. Patient was heme negative with soft brown stool on rectal exam. (brief) Comments Pelvic exam: Normal external exam. No adnexal masses or tenderness. No CMT. Cervical os is closed. Normal uterus. No bleeding. No abnormal discharge noted. 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 Differential Diagnoses Considering: Bowel Obstruction, Diverticulitis, Ectopic , Gastroenteritis, Hernia, IBS, Ileus, UTI, Volvulus Progress Results/Orders Orders Procedure Category Date Status Time Cbc W/Auto LAB 07/17/16 Complete Diff-Reflex Manual Cmp - Comprehensive LAB 07/17/16 Complete Metabolic Lipase LAB 07/17/16 Complete Ua, Dip Wreflex LAB 07/17/16 Complete Microsc & [employer] Operator 09:33 LAB 07/17/16 Complete Qualitative, Urine 09:33 Iv Lock (Ed Only) EDM 07/17/16 Transmitted 09:33 INR LAB 07/17/16 Complete PTT LAB 07/17/16 Complete Normal Saline (Normal PHA 07/17/16 Complete Saline Iv) 10:15 Gc - Chlamydia Pcr LAB 07/17/16 Complete 10:10 Genital Culture ASH 07/17/16 In Process W/Gram Stain 10:10 Microscopic Exam (Wet ASH 07/17/16 In Process Prep-Edwina 10:10 Ct Abd/Pelvis CT 07/17/16 Resulted W/Contrast Only 10:10 Fentanyl (Fentanyl) PHA 07/17/16 Complete 10:15 Ondansetron Inj PHA 07/17/16 Complete (Zofran) 10:15 Iohexol (Omnipaque) PHA 07/17/16 Complete 10:43 Saline Flush (Iv PHA 07/17/16 Complete Flush) 10:44 Normal Saline (Ns) PHA 07/17/16 Complete 10:44 Normal Saline (Ns) PHA 07/17/16 Complete 10:46 Lab Results Laboratory Tests Test 07/17/16 09:39 07/17/16 09:52 07/17/16 09:58 07/17/16 10:25 Urine Collection Type Cleancatch-midstream Urine Color Yellow Urine Turbidity Clear Urine pH 7.5 Urine Specific [place] 1.010 Urine Protein Negative Urine Glucose (UA) Negative Urine Ketones Negative Urine Blood Negative Urine Nitrite Negative Urine Bilirubin Negative Urine Urobilinogen 0.2EU/DL Urine Leukocyte Esterase Negative Urinalysis Comment Microscopic not ind. Urine Test Negative White Blood Count 8.2T/MM3 Red Blood Count 4.03M/MM3 Hemoglobin 12.7GM/DL Hematocrit 37.8% Mean Corpuscular Volume 93.8UM3 Mean Corpuscular Hemoglobin 31.5UUG Mean Corpuscular Hemoglobin Concent 33.6GM/DL RDW Standard Deviation 40.1FL Platelet Count 128T/MM3 Mean Platelet Volume 12.0UM3 Immature Granulocyte % (Auto) 0.4% Neutrophils (%) (Auto) 69.5% Lymphocytes (%) (Auto) 21.0% Monocytes (%) (Auto) 8.2% Eosinophils (%) (Auto) 0.7% Basophils (%) (Auto) 0.2% Absolute Immature Granulocyte (auto 0.03T/MM3 Absolute Neutrophils (auto) 5.7T/MM3 Absolute Lymphocytes (auto) 1.7T/MM3 Absolute Monocytes (auto) 0.7T/MM3 Absolute Eosinophils (auto) 0.1T/MM3 Absolute Basophils (auto) 0.0T/MM3 Turbidity < 20 Sodium Level 146MEQ/L Potassium Level 3.9MEQ/L Chloride Level 109MEQ/L Carbon Dioxide Level 21MEQ/L Anion Gap 16MEQ/L Blood Urea Nitrogen 13.0MG/DL Creatinine 0.7MG/DL Glomerular Filtration Rate Calc 99 BUN/Creatinine Ratio 19RATIO Glucose Level 94MG/DL Calculated Osmolality 281MOSM/KG Calcium Level 9.6MG/DL Total Bilirubin 0.90MG/DL Icterus Index < 2 Aspartate Amino Transf (AST/SGOT) 18U/L Alanine Aminotransferase (ALT/SGPT) 18U/L Alkaline Phosphatase 55U/L Total Protein 7.5G/DL Albumin 4.3G/DL Globulin 3.2G/DL Albumin/Globulin Ratio 1.3RATIO Lipase 39U/L Chemistry Specimen Hemolysis < 15 Prothromb Time International Ratio 1.06 Activated Partial Thromboplast Time 27.7SEC Chlamydia trachomatis DNA (PCR) Negative N. gonorrhoeae DNA Specimen Source Cervical/vaginal Neisseria gonorrhoeae DNA (PCR) Negative Medications Current ED Medications Sodium Chloride (Normal Saline IV) 1,000 ml @ 999 mls/hr Q1H1M ONCE IV Last administered on 07/17/16 10:08; Start 07/17/16 at 10:15; Stop 07/17/16 at 11:15 ; Status DC Fentanyl (Fentanyl) 50 mcg O ONCE IV Last administered on 07/17/16 10:39; Start 07/17/16 at 10:15; Stop 07/17/16 at 10:19; Status DC Ondansetron HCl (Zofran) 4 mg O ONCE IV Last administered on 07/17/16 10:37; Start 07/17/16 at 10:15; Stop 07/17/16 at 10:19; Status DC Iohexol (Omnipaque) 1 bottle STK-MED ONCE .ROUTE ; Start 07/17/16 at 10:43; Stop 07/17/16 at 10:44; Status DC Sodium Chloride 10 ml 10 ml STK-MED ONCE .ROUTE ; Start 07/17/16 at 10:44; Stop 07/17/16 at 10:45; Status DC Sodium Chloride 0 ml @ As Directed STK-MED ONCE IV ; Start 07/17/16 at 10:44; Stop 07/17/16 at 10:45; Status DC Sodium Chloride (NS) 100 ml @ As Directed STK-MED ONCE .ROUTE ; Start 07/17/16 at 10:46; Stop 07/17/16 at 10:47; Status DC Progress Progress Labs/imaging were discussed in detail with the patient and questions are answered. Patient is given 1 L normal saline intravenously. Patient is given 50 g of fentanyl intravenously and 4 mg of Zofran intravenously with improvement of symptoms. Patient is discharged home in improved condition. Patient is to follow up as instructed. Patient's to return to the emergency Department if her condition worsens or changes in any manner. Patient's workup did indicate an increased presence of clue cells on her EDWINA prep. She will be given a prescription for Flagyl 500 mg by mouth twice a day 7 days. Gonorrhea and chlamydia were negative. Patient was provided with prescriptions for Heppner and Zofran. Patient is discharged home in improved condition. Patient to follow up as instructed. Patient is in agreement with the current plan of management. CT ABD/PELVIS was negative. CT CT : CT: Abd/Pelvis IV contrast Interpretation: Normal, Reviewed Written Report AURY KENDRICK DO Jul 17, 2016 09:48
[2016-07-17 10:03] LABS: BASOPHILS % (AUTO) 0.2 % (0-2); EOSINOPHILS # (AUTO) 0.1 T/MM3 (0-0.5); EOSINOPHILS % (AUTO) 0.7 % (0-4); HCT - HEMATOCRIT 37.8 % (36-46); HGB - HEMOGLOBIN 12.7 GM/DL (12-16); IMMATURE GRANULOCYTE # (AUTO) 0.03 T/MM3 (0.00-0.03); IMMATURE GRANULOCYTE % (AUTO) 0.4 % (0.0-0.5); LYMPHOCYTES # (AUTO) 1.7 T/MM3 (1-4.8); MEAN CORPUSCULAR HGB 31.5 UUG (26-34); MEAN CORPUSCULAR HGB CONC(MCHC 33.6 GM/DL (31-37); MEAN CORPUSCULAR VOLUME 93.8 UM3 (80-100); MONOCYTES # (AUTO) 0.7 T/MM3 (0-0.8); MONOCYTES % (AUTO) 8.2 % (0-9.0); NEUTROPHILS #(AUTO)-ABSOLUTE 5.7 T/MM3 (1.8-7.7); NEUTROPHILS % (AUTO) 69.5 % (33-66); RED BLOOD COUNT 4.03 M/MM3 (4.00-5.20); WBC - WHITE BLOOD COUNT 8.2 T/MM3 (4.5-11.0)
[2016-07-17 10:04] LABS: BLOOD, URINE NEGATIVE (NEGATIVE); COLOR,URINE YELLOW (YELLOW); LEUKOCYTE ESTERASE ,URINE NEGATIVE (NEGATIVE); NITRITE,URINE NEGATIVE (NEGATIVE); UROBILINOGEN,URINE 0.2 EU/DL (NORMAL)
[2016-07-17 10:10] LABS: INR 1.06 (0.76-1.04); PROTHROMBIN TIME 11.5 SEC (9.31-12.49); PTT 27.7 SEC (24-36)
[2016-07-17 10:12] LABS: ALBUMIN 4.3 G/DL (3.5-5.0); ALBUMIN/GLOBULIN RATIO 1.3 RATIO (1.1-2.2); ALKALINE PHOSPHATASE 55 U/L (38-126); ALT (SGPT) 18 U/L (9-52); ANION GAP 16 MEQ/L (5-15); AST (SGOT) 18 U/L (14-36); BUN/CREATININE RATIO 19 RATIO (6-26); CALCIUM 9.6 MG/DL (8.4-10.2); CHLORIDE 109 MEQ/L (98-107); CO2 - CARBON DIOXIDE 21 MEQ/L (22-30); CREATININE 0.7 MG/DL (0.7-1.2); GLOMERULAR FILTRATION RATE 99; GLUCOSE 94 MG/DL (65-110); LIPASE 39 U/L (23-300); POTASSIUM 3.9 MEQ/L (3.6-5); SODIUM 146 MEQ/L (134-144); TOTAL PROTEIN 7.5 G/DL (6.3-8.2)
[2016-07-17] MEDS ORDERED: FENTANYL 100mcg/2ml INJECTION IV ONE (10:15)
[2016-07-17] MEDS ORDERED: ONDANSETRON 4mg/2ml INJECTION IV ONE (10:15)
[2016-07-17] MEDS ORDERED: NORMAL SALINE 1,000 ML IV ONE (10:15)
[2016-07-17] MEDS ORDERED: IOHEXOL 300 MG/ML 100ml INJECTION ONE (10:43)
[2016-07-17] MEDS ORDERED: NORMAL SALINE 0 ML IV ONE (10:44)
[2016-07-17] MEDS ORDERED: SALINE FLUSH 10ml SYRINGE ONE (10:44)
[2016-07-17] MEDS ORDERED: NORMAL SALINE 100 ML ONE (10:46)
--- NOTE | 2016-07-17 10:50 | NUR ---
RADIOLOGY PT TO RADIOLOGY PER CART
--- NOTE | 2016-07-17 11:02 | NUR ---
RADIOLOGY PT FROM RADIOLOGY
--- NOTE | 2016-07-17 11:20 | NUR ---
STATUS PT APPEARS TO BE RESTING COMFORTABLY IN CART. DENIES NEEDS AT THIS TIME. REPORTS DECREASE IN PAIN TO 6/10 AFTER FENTANYL ADM, AND FEELS "SLEEPY." CALL LIGHT WITHIN REACH, WILL CONTINUE TO MONITOR.
--- NOTE | 2016-07-17 11:32 | DI ---
Indication: ITS.REASON: Abdominal pain PROCEDURE: CT ABD/PELVIS W/CONTRAST ONLY: Encounter: Initial Comparison: None Technique: Axial CT images were performed through the abdomen and pelvis after the administration of intravenous contrast. Coronal and sagittal two-dimensional reformats. Automated Exposure Control and Iterative Reconstruction dose reducing techniques were utilized. Contrast: Omnipaque 300 89 mL Findings: The lung bases are clear. The liver, gallbladder, spleen, pancreas and adrenal glands are within normal limits. Small upper pole left renal cyst. Kidneys are otherwise normal. No abdominal or pelvic lymphadenopathy. Bladder is normal. Uterus and ovaries are normal for age. Trace free pelvic fluid, probably physiologic. No evidence of a bowel obstruction. The appendix is gas-filled and normal. Bone windows are unremarkable. Pelvic phleboliths. Impression: No acute disease process seen. .
--- NOTE | 2016-07-17 12:06 | NUR ---
PROVIDER DR. KENDRICK AT BEDSIDE TO SPEAK WITH PT.
[2016-07-17] MEDS ORDERED: HYDR-4246 PO (12:16)
[2016-07-17] MEDS ORDERED: ONDA4TAB7 PO (12:16)
[2016-07-17] MEDS ORDERED: METR500T PO (12:16)
[2016-07-17 12:31] VITALS: BP 110/66; PULSE 70; RESP 16; TEMP 98.5; O2SAT 99
--- NOTE | 2016-07-17 12:31 | NUR ---
DISCHARGE WRITTEN INSTRUCTIONS WITH NORCO, ZOFRAN, AND FLAGYL RX REVIEWED AND SENT WITH PT. PT VERBALIZES UNDERSTANDING OF DI AND MEDICATIONS, DENIES QUESTIONS. PT REPORTS PAIN STILL APPROX. 6. PT AMBULATES OUT OF ED WITH STEADY GAIT ACCOMP BY MALE BATTERY RECHARGER AT THIS TIME.
== END 2016-07-17 12:31 | disposition home or self-care (01) ==
LOC: ED 09:16
DX: R10.30 Lower abdominal pain, unspecified (principal); G89.29 Other chronic pain
CPT/HCPCS: 36415; 80053; 81003; 81025; 83690; 85025; 85610; 85730; 87070; 87205; 87210; 87220; 87491; 87591